=== PATIENT | male | born 1995 | race American Indian/Alaskan Native ===

== ENCOUNTER 2017-02-08 19:49 | Emergency (ER) | payer BC, OTHER ==
[2017-02-08 20:16] VITALS: TEMP 98.2
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
[2017-02-08 22:53] VITALS: BP 121/79; PULSE 71; RESP 16; O2SAT 98
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
== END 2017-02-08 22:53 | disposition home or self-care (01) ==
LOC: ED 19:49
DX: S93.402A Sprain of unspecified ligament of left ankle, initial encounter (principal); V87.7XXA Person injured in collision between other specified motor vehicles (traffic), initial encounter; Y92.410 Unspecified street and highway as the place of occurrence of the external cause